=== PATIENT | male | born 1960 | race Caucasian/White ===

== ENCOUNTER → 2016-06-30 | Outpatient (CLI) | payer OTHER ==
[2016-06-30 15:27] LABS: HEMOGLOBIN 14.5 g/dl (13.5-18.0)
== END ==
LOC: COL.LAB 14:26
PROVIDERS: Pediatrics
DX: E83.118 Other hemochromatosis (principal)

== ENCOUNTER → 2016-07-14 | Outpatient (CLI) | payer OTHER ==
[2016-07-14 15:22] LABS: HEMOGLOBIN 15.6 g/dl (13.5-18.0)
[2016-07-14 16:01] LABS: HEMATOCRIT 43.4 % (42.0-52.0)
== END ==
LOC: COL.LAB 14:50
PROVIDERS: Pediatrics
DX: E83.118 Other hemochromatosis (principal)

== ENCOUNTER → 2016-07-28 | Outpatient (CLI) | payer OTHER ==
[2016-07-28 15:38] LABS: HEMOGLOBIN 13.6 g/dl (13.5-18.0)
[2016-07-28 16:25] LABS: HEMATOCRIT 38.6 % (42.0-52.0)
== END ==
LOC: COL.LAB 11:45
PROVIDERS: Pediatrics
DX: E83.118 Other hemochromatosis (principal)

== ENCOUNTER → 2016-08-18 | Outpatient (CLI) | payer OTHER ==
[2016-08-18 16:13] LABS: HEMOGLOBIN 15.5 g/dl (13.5-18.0)
[2016-08-18 16:18] LABS: HEMATOCRIT 43.5 % (42.0-52.0)
== END ==
LOC: COL.LAB 14:26
PROVIDERS: Pediatrics
DX: E83.118 Other hemochromatosis (principal)

== ENCOUNTER → 2016-12-15 | Outpatient (CLI) | payer OTHER ==
[2016-12-15 15:53] LABS: HEMOGLOBIN 15.5 g/dl (13.5-18.0)
[2016-12-15 15:58] LABS: HEMATOCRIT 42.9 % (42.0-52.0)
== END ==
LOC: COL.LAB 09-01 15:28
PROVIDERS: Pediatrics
DX: E83.119 Hemochromatosis, unspecified (principal)

== ENCOUNTER → 2017-02-08 | Outpatient (CLI) | payer OTHER ==
[2017-02-08 15:18] LABS: HEMOGLOBIN 14.5 g/dl (13.5-18.0)
[2017-02-08 15:19] LABS: HEMATOCRIT 40.4 % (42.0-52.0)
== END ==
LOC: COL.LAB 14:45
PROVIDERS: Pediatrics
DX: E83.119 Hemochromatosis, unspecified (principal)

== ENCOUNTER → 2017-06-28 | Outpatient (CLI) | payer OTHER ==
[2017-06-28 15:30] LABS: HEMOGLOBIN 15.6 g/dl (13.5-18.0)
[2017-06-28 15:34] LABS: HEMATOCRIT 43.2 % (42.0-52.0)
== END ==
LOC: COL.LAB 08:39
PROVIDERS: Pediatrics
DX: E83.119 Hemochromatosis, unspecified (principal)

== ENCOUNTER → 2017-10-18 | Outpatient (CLI) | payer OTHER | LOC: COL.LAB 09-13 11:48 | DX: E83.119 Hemochromatosis, unspecified (principal) ==

== ENCOUNTER → 2018-01-17 | Outpatient (CLI) | payer OTHER | LOC: COL.LAB 14:58 | DX: E83.119 Hemochromatosis, unspecified (principal) ==